=== PATIENT | female | born 1955 | race Caucasian/White ===

== ENCOUNTER → 2016-11-21 | Outpatient (CLI) | payer BC ==
[2016-11-21 17:06] VITALS: BP 137/84
== END ==
LOC: MHUC 15:07
PROVIDERS: ATTEND Physician Assistant
DX: S51.812A Laceration without foreign body of left forearm, initial encounter (principal); W22.8XXA Striking against or struck by other objects, initial encounter; Y92.512 Supermarket, store or market as the place of occurrence of the external cause
CPT/HCPCS: 99213

== ENCOUNTER → 2016-11-28 | Outpatient (CLI) | payer BC ==
[2016-11-28 14:21] VITALS: BP 137/88
== END ==
LOC: MHUC 14:05
PROVIDERS: ATTEND Physician Assistant
DX: S51.812D Laceration without foreign body of left forearm, subsequent encounter (principal); X58.XXXD Exposure to other specified factors, subsequent encounter

== ENCOUNTER → 2016-12-20 | Outpatient (CLI) | payer BC ==
[~2016-12-20] MED LIST: ATOR10TA PO; CLIN-78; ESTR1TAB24 PO; FLUC150T PO; HCTZ12.5T PO; HYDR1TAB88 PO; LORA1TAB; LORA1TAB PO; LTRS15C EXT; MELO-255 PO; NEOM10DR9 RIGHT EAR; NF-DES50T PO; NF-LISIN40 PO; SERT25TA69 PO; TERBIN250T PO; ZOLP10TA PO; [UNRECOGNIZED DRUG - CODE]
--- NOTE | 2016-12-21 08:55 | Diagnostic Imaging Report ---
INDICATION: Screening mammogram. COMPARISON: 12/28/2012 through 12/16/2015 The current study was also evaluated with a Computer Aided Detection (CAD) system. FINDINGS: CC and MLO views of the breasts were obtained. The breast tissue is almost entirely fat. There is no dominant mass, suspicious cluster of microcalcifications or other evidence to indicate malignancy. There has been no significant change from prior mammograms. IMPRESSION: Stable mammogram without evidence of malignancy. BI-RADS: Category 1 Negative Result letter will be mailed to the patient. Follow-up: Yearly mammogram NOTE: Keep in mind that about 10% of breast cancers will not be identified on mammography. Further evaluation of a palpable mass not seen on mammography should be based on clinical grounds. Dictated by: Dictated on workstation # [id number]
== END ==
LOC: RAD 10:56
PROVIDERS: ATTEND Family Medicine
DX: Z12.31 Encounter for screening mammogram for malignant neoplasm of breast (principal)